=== PATIENT | male | born 1975 | race African-American/Black ===

== ENCOUNTER 2020-02-13 01:09 | Emergency (ER) | payer MEDICAID, OTHER ==
[~2020-02-13] VITALS: Ht 185.4 cm; Wt 100.0 kg
[~2020-02-13 01:09] MED LIST: ADVIL; ATIVAN; BUPROPION; CODEINE; CYMBALTA; DEPAKOTE
[2020-02-13] MEDS ORDERED: LORAZEPAM 2MG/ML CPJ IM STA (01:33)
[2020-02-13] MEDS ORDERED: HALOPERIDOL LACTATE 5MG/ML VIAL IM STA (01:33)
[2020-02-13 02:15] LABS: CLARITY URINE CLEAR (CLEAR); COLOR URINE YELLOW (YELLOW); KETONES URINE TRACE (NEGATIVE); LEUKOCYTE ESTERASE URINE NEGATIVE (NEGATIVE); NITRITE URINE NEGATIVE (NEGATIVE); OCCULT BLOOD URINE NEGATIVE (NEGATIVE); PH URINE 5.5 (4.5-8.0); PROTEIN URINE TRACE (NEGATIVE); SPECIFIC GRAVITY URINE 1.028 (1.005-1.030)
[2020-02-13 02:20] LABS: *AMPHETAMINES SCREEN URINE NEGATIVE (NEGATIVE)
[2020-02-13 02:21] LABS: *BARBITURATES SCREEN URINE NEGATIVE (NEGATIVE); *BENZODIAZEPINES SCREEN URINE NEGATIVE (NEGATIVE); *COCAINE SCREEN URINE NEGATIVE (NEGATIVE); CANNABINOID URINE SCREEN NEGATIVE (NEGATIVE); METHADONE URINE SCREEN NEGATIVE (NEGATIVE); OPIATES URINE SCREEN NEGATIVE (NEGATIVE); PHENCYCLIDINE URINE SCREEN NEGATIVE (NEGATIVE)
[2020-02-13 02:26] LABS: CHLORIDE 109 mEq/L (98-107)
[2020-02-13 02:30] LABS: BASOPHILS % 0.4 % (0.0-2.0); EOSINOPHILS % 2.5 % (0.0-5.0); ETHANOL BLOOD < 10 mg/dL; HEMATOCRIT. 41.8 % (42.0-52.0); HEMOGLOBIN. 13.8 g/dL (14.0-18.0); LYMPHOCYTES % 36.9 % (20.0-50.0); MEAN CORPUSCULAR HEMOGLOBIN 27.8 pg (28.0-32.0); MEAN CORPUSCULAR VOLUME 84.1 fL (80.0-94.0); MEAN PLATELET VOLUME 8.1 fl (7.4-10.4); MONOCYTES % 8.3 % (2.0-8.0); NEUTROPHILS % 51.9 % (40.0-76.0); PLATELET 193 x1000/uL (130-400); RED BLOOD CELL COUNT 4.98 mill/uL (4.7-6.1); RED CELL DISTRIBUTION WIDTH 14.1 % (11.6-14.6)
[2020-02-13 08:45] VITALS: BP 126/79
== END 2020-02-13 10:30 | disposition home or self-care (01) ==
LOC: ER 01:09
DX: F23 Brief psychotic disorder (principal); Z88.8 Allergy status to other drugs, medicaments and biological substances; Z79.899 Other long term (current) drug therapy
CPT/HCPCS: 36415; 80053; 80305; 80307; 80320; 80329; 81003; 85025; 93005; 96372; 99285; J1630; J2060; G0480

== ENCOUNTER 2024-12-23 21:34 | Emergency (ER) | payer MEDICAID, OTHER ==
[~2024-12-23] VITALS: Ht 182.9 cm; Wt 95.0 kg
[2024-12-23 21:36] VITALS: TEMP 36.8; O2SAT 98
[2024-12-23 22:26] VITALS: BP 194/127; PULSE 91; RESP 15; O2SAT 99
== END 2024-12-23 22:38 | disposition home or self-care (01) ==
LOC: ER 21:34
DX: F20.9 Schizophrenia, unspecified (principal); I10 Essential (primary) hypertension; F41.9 Anxiety disorder, unspecified; Z87.891 Personal history of nicotine dependence
CPT/HCPCS: 99283

== ENCOUNTER 2025-02-07 19:20 | Emergency (ER) | payer MEDICAID ==
[~2025-02-07] VITALS: Ht 182.9 cm; Wt 104.0 kg
[2025-02-07 19:34] VITALS: TEMP 36.8
[2025-02-07 20:40] VITALS: PULSE 103; RESP 24; O2SAT 98
[2025-02-07] MEDS: ALBUTEROL (0.083%) 2.5MG/3ML NEB HHN ONE (20:50)
[2025-02-07] MEDS ORDERED: ALBU18HF2 IH (21:12)
[2025-02-07] MEDS ORDERED: BENZ200C52 MT (21:12)
[2025-02-07 21:56] VITALS: BP 160/96; PULSE 100; RESP 16; O2SAT 96
== END 2025-02-07 21:58 | disposition home or self-care (01) ==
LOC: ER 19:20
DX: J45.909 Unspecified asthma, uncomplicated (principal); R05.1 Acute cough; I10 Essential (primary) hypertension; Z79.899 Other long term (current) drug therapy
CPT/HCPCS: 71045; 94640; 99283; Z7610 ×2; 94760